=== PATIENT | female | born 1960 | race Caucasian/White ===

== ENCOUNTER 2021-11-16 12:57 | Outpatient (CLI) | payer OTHER, SELFPAY ==
--- NOTE | ~2021-11-16 | CT_ITS ---
EXAMINATION: CT diagnostic chest wo con DATE: 11/16/2021 13:17 INDICATION: TOBACCO USE. Cough. TECHNIQUE: Computed tomography (CT) of the chest was performed without intravenous contrast. Addition al 3D reconstructions utilizing coronal maximum intensity projection (MIP) were performed. Automated exposure control and iterative reconstruction technique were employed. The dose-length product was 15 9.13 mGy-cm. COMPARISON: None FINDINGS: Mild emphysema. 7 mm irregular subsolid nodules in the superior segment of the left lower lobe. Mild atelectasis/scarring at the basilar right lower lobe. Additional tiny focus of peripheral atelectasis /scarring in the posterior right upper lobe. No pneumonia, pulmonary edema or pleural effusion. Heart size is normal. No pericardial effusion. Thoracic aorta is normal in caliber. No pathologically enla rged thoracic lymphadenopathy. Cholecystectomy clips at the gallbladder fossa. [address] one at the upper pole of the moderate to severely atrophic right kidney. Mild thoracic dextrocurvatur e with mild to moderate thoracic spondylosis. Partially visualized instrumented lower cervical anteri or spinal fusion. IMPRESSION: 1. Indeterminate 7 mm irregular subsolid left lower lobe nodule. Recommend 3-6 month follow-up low-do se noncontrast chest CT. 2. Mild emphysema. Reviewed, dictated and finalized at location A. [employer] IMPRESSION: 1. Indeterminate 7 mm irregular subsolid left lower lobe nodule. Recommend 3-6 month follow-up low-dose noncontrast chest CT. 2. Mild emphysema.
== END 2021-11-16 12:58 | disposition home or self-care (01) ==
PROVIDERS: Visit Provider Nurse Practitioner
DX: R05.9 Cough, unspecified (principal); R91.8 Other nonspecific abnormal finding of lung field; J43.9 Emphysema, unspecified
CPT/HCPCS: 71250

== ENCOUNTER 2022-06-19 10:55 | Outpatient (CLI) | payer OTHER, SELFPAY ==
--- NOTE | ~2022-06-19 | CT_ITS ---
EXAMINATION: CT diagnostic chest wo con DATE: 06/19/2022 11:56 INDICATION: Lung nodule TECHNIQUE: Computed tomography (CT) of the chest was performed without intravenous contrast. The dose -length product (DLP) was 69.79 mGy-cm. Automated exposure control and iterative reconstruction techn ique were employed. COMPARISON: 11/16/2021 FINDINGS: There is a stable 7 mm nodule in the superior segment of the left lower lobe. No new pulmon juana nodules are identified. The lungs are free of acute opacities. No pleural effusion or pneumothora x. No pathologically enlarged thoracic lymph nodes are identified. The heart size is normal. Calcifie d coronary artery atherosclerosis is noted. The gallbladder is surgically absent. There is atrophy of the right kidney. There is mild thoracic spondylosis. There are partially imaged changes of anterior fusion in the lower cervical spine. IMPRESSION: 1. Stable 7 mm nodule of the left lower lobe. Follow-up low-dose CT in 6-12 months is recommended. Reviewed, dictated and finalized at location A. IMPRESSION: 1. Stable 7 mm nodule of the left lower lobe. Follow-up low-dose CT in 6-12 mon ths is recommended.
== END 2022-06-19 10:56 | disposition home or self-care (01) ==
PROVIDERS: PCP Nurse Practitioner; Visit Provider Nurse Practitioner
DX: R91.1 Solitary pulmonary nodule (principal); F17.210 Nicotine dependence, cigarettes, uncomplicated; I25.10 Atherosclerotic heart disease of native coronary artery without angina pectoris; M47.814 Spondylosis without myelopathy or radiculopathy, thoracic region; Z98.1 Arthrodesis status
CPT/HCPCS: 71250